=== PATIENT | female | born 1995 | race Caucasian/White ===

== ENCOUNTER 2023-05-01 21:24 | Emergency (ER) | payer BC, SELFPAY ==
[2023-05-01 21:26] VITALS: BP 109/65; PULSE 85; RESP 16; TEMP 36.6; O2SAT 100
--- NOTE | 2023-05-01 21:33 | ECG_ITS ---
Measurements Intervals Victor Rate: 81 P: 43 ID: 131 QRS: 24 QRSD: 103 T: 33 QT: 379 QTc: 442 Interpretive Statements SINUS RHYTHM NONSPECIFIC T-WAVE ABNORMALITY- ANTEROLAT/INF LEADS BASELINE ARTIFACT- I, II, III, AVR, AVF BORDERLINE ECG NO PREVIOUS ECG AVAILABLE FOR COMPARISON Electronically Signed On 05-02-2023 6:57:39 CDT by Mahendra Burns D.O.
[2023-05-01 21:41] VITALS: PULSE 82; RESP 17
[2023-05-01 21:45] VITALS: PULSE 86; RESP 19
[2023-05-01 21:47] VITALS: BP 101/72; PULSE 90; RESP 15
[2023-05-01 21:49] VITALS: RESP 14
--- NOTE | 2023-05-01 21:49 | ED.GENADULT ---
HPI - General Adult General Chief complaint: Overdose Stated complaint: od Time Seen by Provider: 05/01/23 21:44 History of Present Illness HPI narrative: 27 year old femal history of depression presented with ingestion. Per patient, she has been having increased life stressors, been unable to find an outpatient psychiatrist. Today reports not wanting to wake up so took a handful of clonopin, xanax, and two pills of vicodin. Immediately regretted it, and texted her father. This occured 40 min prior to presentation. She denied medical complaints prior to this incident. Denied HI/AH/VH. Past Medical History: depression Past Surgical History: neck decompression, trach Medications: klonopin, xanax Allergies: latex, polymixin Related Data Home Medications Medication Instructions Recorded Confirmed buspirone 30 mg tablet mg 05/02/23 clomipramine 75 mg capsule mg 05/02/23 05/02/23 gabapentin 100 mg capsule mg 05/02/23 gabapentin 300 mg capsule mg 05/02/23 levomefolate calcium 15 mg tablet mg PO 05/02/23 midodrine 5 mg tablet mg 05/02/23 zonisamide 100 mg capsule mg PO 05/02/23 Allergies Allergy/AdvReac Type Severity Reaction Status Date / Time bacitracin Allergy Unknown Unknown Verified 05/02/23 06:05 latex Allergy Unknown RASH Verified 05/02/23 06:05 tree nut Allergy Unknown Unknown Verified 05/02/23 06:05 POLYMYXIN B SULFATE Allergy Unknown Unknown Uncoded 05/02/23 06:05 Review of Systems Review of Systems: See HPI [facility] Social History Social History Substance use type: marijuana Exam Narrative: General: Alert, mildly somnolent, calm and cooperative, no acute distress, phonating, sitting comfortably during visit HEENT: Pupils equal round and reactive to light, extra ocular movements intact, no conjunctival injection, head atraumatic, neck supple without meningismus Cardiovascular: Regular rate and rhythm, no visible jugular venous distension Respiratory: Lungs clear to auscultation bilaterally, no wheezing/rales/rhonchi Abdominal: soft, non-tender, non-distended, no guarding, no rebound/peritoneal signs, no costovertebral tenderness to palpation Back: no midline tenderness to palpation, no step offs Extremities: No edema, palpable peripheral pulses, warm, well perfused, no tenderness to bilateral calves Neurological: Alert, mildly somnolent, moving all extremities symmetrically, ambulating without deficit Course Reevaluation(s) Reevaluation #1: Patient reassessed, no longer somnolent. Physical exam benign, sitting in bed comfortably, vitals within normal limits. Patient is medically cleared for psychiatric evaluation and disposition. Date: 05/02/23 Time: 02:00 Consultations Consultation #1: Poison control contacted; recommended 4 hour tylenol level (1am), treat with NAC if tyelenol level >150 or if transaminitis. Date: 05/01/23 Time: 22:25 Vital Signs Vital signs: Vital Signs Temperature 97.8 F 05/01/23 21:26 Pulse Rate 85 05/01/23 21:26 Respiratory Rate 16 05/01/23 21:26 Blood Pressure 109/65 05/01/23 21:26 Pulse Oximetry 100 05/01/23 21:26 Oxygen Delivery Room Air 05/01/23 21:26 Temperature 97.8 F 05/01/23 21:26 Pulse Rate 65 05/02/23 04:30 Respiratory Rate 14 05/02/23 04:30 Blood Pressure 123/75 05/02/23 04:30 Pulse Oximetry 100 05/02/23 04:30 Oxygen Delivery Room Air 05/01/23 21:26 Medical Decision Making MDM Narrative Medical decision making narrative: 27 year old female history of depression presented with ingestion in the setting of suicidal intention. Physical exam benign, mildly somnolent, neuro exam non focal, sitting in bed comfortably, vitals stable. Poison control contacted. Bloodwork reviewed, unremarkable. Patient is medically cleared for transportation and psychiatric admission. Vital Signs Vital Signs: Vital Signs Temperature 97.8 F 05/01/23 21:26 Pulse Rate 85 05/01/23 21:26 Respiratory Rate 16
--- NOTE | 2023-05-01 22:06 | PC.NURSE ---
spoke with Deep at Poison Control. case # [id number]. provider aware of recommendations
[2023-05-01 22:12] LABS: Basophils Absolute Auto 0.1 K/mm3 (0.0-0.1); Basophils Percent Auto 0.6 % (0.2-1.2); Eosinophils Absolute Auto 0.2 K/mm3 (0-0.3); Eosinophils Percent Auto 2.9 % (0-4.4); Hematocrit 36.1 % (37.0-47.0); Hemoglobin 11.9 g/dL (12.0-15.0); Immature Granulocyte Absolute 0.02 K/mm3 (0.00-0.031); Immature Granulocyte Percent A 0.3 % (0-0.5); Lymphocytes Absolute Auto 3.05 K/mm3 (0.9-3.2); Lymphocytes Percent Auto 38.4 % (18.3-44.2); Mean Corpuscular Hemoglobin 30.8 pg (26-34); Mean Corpuscular Volume 93.5 fl (80-100); Mean Platelet Volume 10.8 fl (7.4-10.4); Monocytes Absolute Auto 0.5 K/mm3 (0.1-0.6); Monocytes Percent Auto 6.7 % (2.6-8.5); Neutrophils Absolute Auto 4.1 K/mm3 (1.3-6.7); Neutrophils Percent Auto 51.1 % (45.5-73.1); Platelet Count Result 284 k/mm3 (150-375); Red Blood Count 3.86 M/mm3 (4.2-5.4); Red Cell Distribution Width 12.7 % (11.5-14.5); White Blood Count 7.9 K/mm3 (4.5-10.0)
[2023-05-01 22:25] LABS: SARS-CoV-2 RNA PCR Negative (Negative)
[2023-05-01 23:11] LABS: Acetaminophen < 10 ug/mL (10-30); Salicylate < 1.0 mg/dL (2-20)
[2023-05-01 23:45] LABS: Ethanol < 10 mg/dL (<10)
[2023-05-02 00:46] LABS: Appearance Urine Clear (Clear); Bilirubin Urine Negative (Negative); Blood Urine Negative (Negative); Color Urine Yellow (Yellow); Glucose Urine UA Negative (Negative); Ketones Urine Negative (Negative); Leukocyte Esterase Ur Negative LEU/UL (Negative); Nitrate Urine Negative (Negative); Protein Urine Negative (Negative); Specific Grav Ur 1.009 (1.001-1.035); Urobilinogen Urine 0.2 mg/dL (<2.0); pH Urine 6.5 (5.0-9.0)
[2023-05-02 01:05] LABS: Amphetamine Screen Urine Negative (Negative); Barbiturate Screen Urine Positive (Negative); Benzodiazepines Screen Urine Positive (Negative); Cannabinoid Screen Urine Negative (Negative); Cocaine Screen Urine Negative (Negative); Methadone Screen Urine Negative (Negative); Opiate Screen Urine Positive (Negative); Phencyclidine Screen Urine Negative (Negative)
[2023-05-02 01:10] LABS: Add Urine Microscopic? NO
[2023-05-02 01:33] LABS: Acetaminophen < 10 ug/mL (10-30)
[2023-05-02 01:36] LABS: Alanine Aminotransferase 31 U/L (6-35); Albumin Level 3.9 g/dL (3.5-5.1); Alkaline Phosphatase 72 U/L (38-126); Anion Gap 8 mmol/L (8-16); Aspartate Amino Transferase 32 U/L (14-36); Bilirubin,Total 0.3 mg/dL (0.2-1.3); Blood Urea Nitrogen 7 mg/dL (7-17); Calcium 8.2 mg/dL (8.4-10.2); Carbon Dioxide 27 mmol/L (22-30); Chloride 104 mmol/L (98-107); Estimated CRCL calculation 139 ml/min; Estimated Glomerular Filt Rate > 60; Glucose 88 mg/dL (65-110); Potassium 3.7 mmol/L (3.4-5.0); Sodium 139 mmol/L (137-145)
--- NOTE | 2023-05-02 02:50 | PC.NURSE ---
Case number for poison control [id number]
[2023-05-02 02:54] VITALS: BP 109/65; PULSE 73; RESP 18; O2SAT 100
[2023-05-02 04:30] VITALS: BP 123/75; PULSE 65; RESP 14; O2SAT 100
--- NOTE | 2023-05-02 04:30 | PC.NURSE ---
Assumed care of pt. at this time. Report from WILMA Bales
--- NOTE | 2023-05-02 07:23 | PC.NURSE ---
Patient report received from WILMA Guerra. All questions answered and care of patient assumed.
--- NOTE | 2023-05-02 07:45 | PC.NURSE ---
Spoke with Consuelo from [facility]. Information provided as requested. Speaking with patient and father to discuss transfer and admission.
--- NOTE | 2023-05-02 08:18 | PC.NURSE ---
Received a call from the [place] who states that because the patient was on her father's insurance and her birthday is today and she will no longer be covered under his insurance and thus it will be self-pay. Communicated to patient and father.
[2023-05-02 09:00] VITALS: BP 94/59; PULSE 102; RESP 14; TEMP 36.7; O2SAT 100
[2023-05-02 12:28] VITALS: BP 92/60; PULSE 108; RESP 16; TEMP 36.7; O2SAT 96
--- NOTE | 2023-05-02 12:29 | PC.NURSE ---
Patient report provided to paramedics at time of transfer. All questions answered. Patient transferred with all secured belongings. VSS at time of transport.
== END 2023-05-02 12:29 ==
PROVIDERS: Emergency Provider Emergency Medicine
DX: T50.902A Poisoning by unspecified drugs, medicaments and biological substances, intentional self-harm, initial encounter (principal); F32.A Depression, unspecified
CPT/HCPCS: 36415; 80053; 80307; 81003; 81025; 84443; 85025; 87635; 93005; 99285

== ENCOUNTER 2025-02-10 15:34 | Emergency (ER) | payer MEDICARE, MEDICAID, SELFPAY ==
--- OUTSIDE RECORDS SUMMARY | 2025-02-10 15:37 | XMS_ITS | Patient Health Record ---
Author Organization [employer] [place] ([address]) Address [address] [place] [address] Care Team Providers Care Trade Recruiter Name Role Phone Dr. Kareem Lowery Unavailable [phone] [facility], Provider Unavailable Unavailab le Allergies No Known Allergies Reason For Referral No Information Medications Medication SIG (Take, Route, Frequency, Duration) Notes Start Date End Date Status CLARITIN 10 mg 1 tab(s) orally once a day Active Midodrine HCl 10 MG 1 tab(s) orally 3 times a day for 30 day(s) Active clomiPRAMINE HCl 50 MG 1 cap(s) orally 3 times a day for 30 day(s) Active Claritin 10 MG 1 tab(s) orally once a day Active Flonase Allergy Relief *Please review and pick correct strength-formulati on from [employer] options. If intended option is not shown, discontinue and re-order from Quick Search* Active Gabapentin 100 MG 1 cap(s) orally 3 times a day for 30 day(s) Active FLUoxetine HCl 60 MG 1 TAB(S) ORALLY ONCE A DAY (IN THE MORNING) for 30 DAY(S) *Please review and pick correct strength-formulati on from [employer] options. If intended option is not shown, discontinue and re-order from Quick Search* Active CLOMIPRAMINE 50 mg 1 cap(s) orally 3 times a day for 30 day(s) Active NORDITROPIN FLEXPRO PEN 15 MG/1.5 ML DIRECTED SUBCUTANEOUSLY 6 TIMES A WEEK *Please review for potential replacement for e-prescription and drug interaction check* Active DULoxetine HCl 20 MG 1 cap(s) orally 2 times a day for 30 day(s) Active MIDODRINE 10 mg 1 tab(s) orally 3 times a day for 30 day(s) Active GABAPENTIN 100 mg 1 cap(s) orally 3 times a day for 30 day(s) Active FLONASE Active FLUOXETINE 60 mg 1 tab(s) orally once a day (in the morning) for 30 day(s) Active DULOXETINE 20 mg 1 cap(s) orally 2 times a day for 30 day(s) Active Social History Tobacco Use: Social History Observation Description Date Details (start date - stop date) Never Smoker NA - NA Smoking Smart Form: Question Answer Notes Are you a: never smoker Encounters Encounter Location Date Provider Diagnosis [address] [place] [address] 03/22/2024 Provider [facility] Plan Of Treatment No Information Insurance Providers Payer Name Payer Address Payer Phone Subscriber Number Group Number Insured Name Patient Relationship to Insured Coverage Start Date Coverage End Date [facility] [address] [place] [address] [id number] [employer] Child - Insured has Financial Responsibility Medical (General) History Medical History History ICD Code H/o TBI as above Depression Hypotension Allergies Surgical History Surgery Date(Month/Year) Previous cranial burrhole surgery as abo ve
--- OUTSIDE RECORDS SUMMARY | 2025-02-10 15:37 | XMS_ITS ---
Author Organization [employer] [place] ([address]) Address [address] [place] [address] Care Team Providers Care Customer Support Representative Name Role Phone Dr. Kareem Lowery Unavailable [phone] [facility], Provider Unavailable Unavailab le [facility]ASON FOR VISIT [facility] Encounter Medications Medication SIG (Take, Route, Frequency, Duration) Notes Start Date End Date Status clomiPRAMINE HCl 50 MG 1 cap(s) orally 3 times a day for 30 day(s) Active Flonase Allergy Relief *Please review and pick correct strength-formulati on from [employer] options. If intended option is not shown, discontinue and re-order from Quick Search* Active Gabapentin 100 MG 1 cap(s) orally 3 times a day for 30 day(s) Active FLUoxetine HCl 60 MG 1 TAB(S) ORALLY ONCE A DAY (IN THE MORNING) for 30 DAY(S) *Please review and pick correct strength-formulati on from [employer] options. If intended option is not shown, discontinue and re-order from Quick Search* Active Midodrine HCl 10 MG 1 tab(s) orally 3 times a day for 30 day(s) Active Claritin 10 MG 1 tab(s) orally once a day Active NORDITROPIN FLEXPRO PEN 15 MG/1.5 ML DIRECTED SUBCUTANEOUSLY 6 TIMES A WEEK *Please review for potential replacement for e-prescription and drug interaction check* Active DULoxetine HCl 20 MG 1 cap(s) orally 2 times a day for 30 day(s) Active Encounters Encounter Location Date Provider Diagnosis RINKU Rojas [facility] [place] [address] 03/22/2024 Provider [facility] Plan Of Treatment No Information Progress Notes * Hermila CHARLES:1995 (29 yo F)Acc No.[id number]:03/22/2024 Patient: Ying LINDSAY Provider: Willy Burnett :1995 A ge:28 Y S ex:Female Date:03/22/2024 Address:[address] [place], [place] [id number] Subjective: * Chief Complaints: * 1 . [facility] Con[facility] Encounter. * Medical History: * Medications: T aking Midodrine HCl 10 MG Tablet 1 tab(s) orally 3 times a day , Taking Flonase Allergy Relief , Notes to Pharmacist: *Please review and pick correct strength-formulation from [facility] options. If intended option is not shown, discontinue and re-order from Quick Search*, Taking Gabapentin 100 MG Capsule 1 cap(s) orally 3 times a day , Taking clomiPRAMINE HCl 50 MG Capsule 1 cap(s) orally 3 times a day , Taking Claritin 10 MG Tablet 1 tab(s) orally once a day , Taking NORDITROPIN FLEXPRO PEN 15 MG/1.5 ML SOLUTION DIRECTED SUBCUTANEOUSLY 6 TIMES A WEEK , Notes to Pharmacist: *Please review for potential replacement for e-prescription and drug interaction check*, Taking DULoxetine HCl 20 MG Capsule Delayed Release Particles 1 cap(s) orally 2 times a day , Taking FLUoxetine HCl 60 MG TABLET 1 TAB(S) ORALLY ONCE A DAY (IN THE MORNING) , Notes to Pharmacist: *Please review and pick correct strength-formulation from [facility] options. If intended option is not shown, discontinue and re-order from Quick Search* Objective: * Vitals: Assessment: Plan: * Treatment: * Billing Information: * Visit Code: * Procedure Codes: * Electronic signature of Jimi BradyZ-Migration on 02/10/2025 at 03:37 PM CDT Sign off status: Pending * Provider: Willy Burnett Date: 03/22/2024 Generated for Luann marino/Seth/Irina on: 02/10/2025 03:37 PM CDT
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
--- OUTSIDE RECORDS SUMMARY | 2025-02-10 15:38 | XMS_ITS | Clinical Summary ---
Author Organization [facility] Address [address] [place] [address] Care Team Providers Care Chainstitch Felled Seam Operator Name Role Phone None, Physician Primary Care Provider Unavailabl e Source Comments [facility],non-owned Affiliates and Associated Physician Practices is amultiple site organization consisting of ambulatory clinics and hospital sitesin [place], [place], [place] and [place]. This disclosure is being madepursuant to the Care Everywhere program and may not contain all information available regarding this patient. Last updated 18.[facility] Allergies Active Allergy Reactions Criticality Noted Date Comments Latex Skin Reactions Medium 03/22/2017 Neomycin Itching Low 03/22/2017 Medications * Be aware that medications may not be up to date on this document. Alwaysverify current medications with the patient. vilazodone (VIIBRYD) 10 MG tablet Take by mouth. 7 Active ALPRAZolam (XANAX) 1 MG tablet 0 7 Active buPROPion XL 24hr (WELLBUTRIN-XL) 300 MG tablet 2 7 Active Probiotic Product (ACIDOPHILUS/GOA T MILK) CAPS Take by mouth. 7 Active nystatin (MYCOSTATIN) 420987 UNIT/GM ointment Use externally vaginal area for red/ itching skin. 30 g 8 Active Additional Information Patient not taking.Reported on 04/21/2020 boric acid 600 mg capsuleIndicatio ns:History of candidiasis Use to vagina twice weekly to control symptoms 30 capsule 3 0 Active albuterol HFA (Proventil; Ventolin; Proair) 108 (90 Base) MCG/ACT inhaler Inhale 2 (two) puffs by mouth every 6 hours as needed 2 Active ALPRAZolam (Xanax) 0.5 MG tablet 3 Active ALPRAZolam (Xanax) 0.5 MG tablet Take 1 (one) tablet to 2 (two) tablets by mouth once daily as needed 3 Active amantadine (Symmetrel) 100 MG capsule 3 Active amantadine (Symmetrel) 100 MG capsule Take 1 (one) capsule by mouth 2 times daily 3 Active ARIPiprazole (Abilify) 2 MG tablet Take 1 (one) tablet by mouth at bedtime 3 Active ARIPiprazole (Abilify) 2 MG tablet Take 1 (one) tablet by mouth at bedtime 30 tablet 5 3 Active busPIRone (Buspar) 7.5 MG tablet Take 1 (one) tablet by mouth once daily as needed 3 Active busPIRone (Buspar) 7.5 MG tablet Take 2 (two) tablets by mouth 2 times daily 3 Active busPIRone (Buspar) 15 MG tablet Take 1 (one) tablet by mouth 2 times daily 3 Active busPIRone (Buspar) 30 MG tablet Take 1 (one) tablet by mouth 2 times daily 3 Active ondansetron (Zofran) 4 MG tablet TAKE 1 OR 2 TABLETS BY MOUTH EVERY 4 TO 6 HOURS NEEDED FOR NAUSEA 3 Active Norditropin FlexPro 10 MG/1.5ML injection 3 Active Active Problems Problem Noted Date Diagnosed Date History of carotid artery dissection 01/02/2020 Vocal fold paresis, 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 Overview (04/21/2020): Added automatically from request for surgery [id number] History of candidiasis 06/17/2018 Impaired mobility and ADLs 06/02/2018 Traumatic brain injury 04/29/2018 Loss of teeth due to an accident, class II edent ulism 04/28/2018 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 Overview (04/21/2020): Added automatically from request for surgery [id number] Personal history of other infectious and parasit ic diseases 03/22/2017 Subacute on chronic vulvitis 03/22/2017 Immunizations Immunization Administration Dates Next Due TDAP (7yrs+) 10/16/2023 Family History Medical History Relation Name Comments Depression Father Parkinson's Disease Maternal Grandfather None Known Maternal Grandmother None Known Mother None Known Paternal Grandfather Depression Paternal Grandmother Depression Sister Relation Name Status Comments Father Maternal Grandfather Maternal Grandmother Alive Mother Paternal Grandfather Alive Paternal Grandmother Alive Sister Social History Tobacco Use Types Packs/Day Years Used Date Smoking Tobacco: Passive Smo ke Exposure - Never Smoker Smokeless Tobacco: Never Alcohol Use Standard Drinks/Week Comments No 0 (1 standard drink = 0.6 oz pur e alcohol) Comments Unknown Sex and Gender Information Value Date Recorded Sex Assigned at Female 06/26/2021 6:54 PM CDT Legal Sex Female 5:18 PM [employer] Gender Identity Female 06/26/2021 6:54 PM CDT Sexual Orientation Not on file Last Filed Vital Signs Vital Sign Reading Time Taken Comments Blood Pressure 101/69 10/16/2023 12:00 AM AUTO MECH[employer]IC Pulse 87 10/16/2023 12:00 AM AUTO MECH[employer]IC Temperature 36.1 C (97 F) 10/15/2023 7:48 PM [employer]O MECH[employer]IC Respiratory Rate 18 10/15/2023 7:48 PM AUTO MECHANIC Oxygen Saturation 99% 10/16/2023 12:00 AM AUTO MECHANIC Inhaled Oxygen Concentration - - Weight 101.2 kg (223 lb) 10/15/2023 7:48 PM AUTO MECHANIC Height 167.6 cm (5' 6 ) 04/21/2020 1:13 PM CDT Body Mass Index 35.99 04/21/2020 1:13 PM CDT Plan of Treatment Health Maintenance Due Date Last Done Comments PAP SMEAR 1997 HIV SCREENING 2012 HEPATITIS C SCREENING 04/28/2015 HEPATITIS B VACCINE (1 of 3 - 19+ 3-dose series) 2016 COVID-19 VACCINE ( season) 2024 07/27/2023, 08/25/2022, 08/20/2021, Additional history exists DEPRESSION SCREENING 10/08/2024 INFLUENZA VACCINE (Season Ended) 2025 07/27/2023, 08/25/2022, 08/20/2021, Additional history exists DTAP/TDAP/TD VACCINES (2 - Td or Tdap) 10/16/2033 10/16/2023 ZOSTER VACCINE (1 of 2) 2047 HIB VACCINE Aged Out No longer eligi ble based on patient's age to complete this topic HPV VACCINE Aged Out No longer eligi ble based on patient's age to complete this topic MENINGOCOCCAL (Group B) VACCINE SHARED DECISION-MAKING Aged Out No longer eligible based on patient's age to complete this topic MENINGOCOCCAL GROUPS A/C/Y/W VACCINE Aged Out No longer eligible based on patient's age to complete this topic PNEUMOCOCCAL VACCINE Aged Out No long er eligible based on patient's age to complete this topic Insurance Care Teams Chainstitch Felled Seam Operator Relationship Specialty Start Date End Date None, Physician [address] [place] [address] PCP - General 10/14/23
--- OUTSIDE RECORDS SUMMARY | 2025-02-10 15:38 | XMS_ITS | Clinical Summary ---
Author Organization [facility] Address [address] [place] [address] Phone Care Team Providers Care Tobacco Packing Machine Operator Name Role Phone Unavailable Primary Care Provider Unavailabl e Allergies No known active allergies Medications albuterol 90 mcg/Actuation HFA inhaler Take 2 Puffs by inhalation every 4 hours as needed for Shortness of Breath. Active norethindrone-e .estradiol-iron (MINASTRIN 24 FE) 1 mg-20 mcg(24) /75 mg (4) Tablet, Chewable Take by mouth. Activ e beclomethasone (QVAR) 40 mcg/actuation Aerosol Take 1 Puff by inhalation 1 time daily as needed. Active Family History Medical History Relation Name Comments Bipolar Disorder Sister Relation Name Status Comments Sister Social History Tobacco Use Types Packs/Day Years Used Date Smoking Tobacco: Never Alcohol Use Standard Drinks/Week Comments No 0 (1 standard drink = 0.6 oz pur e alcohol) Comments Unknown Sex and Gender Information Value Date Recorded Sex Assigned at Not on file Legal Sex Female 3:40 PM CDT Gender Identity Not on file Sexual Orientation Not on file Occupation Industry Job Start Date Job End Date Not on file Not on file Not on file Not on file Last Filed Vital Signs Vital Sign Reading Time Taken Comments Blood Pressure 124/85 06/20/2014 3:59 PM CDT Pulse - - Temperature 37.1 C (98.8 F) 06/20/2014 3:59 PM CDT Respiratory Rate 16 06/20/2014 6:00 PM CDT Oxygen Saturation 99% 06/20/2014 6:00 PM CDT Inhaled Oxygen Concentration - - Weight 62.6 kg (138 lb 0.1 oz) 06/20/2014 3:59 P M CDT Height - - Body Mass Index - - Plan of Treatment Health Maintenance Due Date Last Done Comments DTAP/TDAP/TD VACCINES (1 - Tdap) 2016 HEPATITIS B VACCINES (1 of 3 - 19+ 3-dose series) 2016 CERVICAL CANCER SCREENING 2018 HPV/Cotest (21-29) 2018 PAP SMEAR 2018 INFLUENZA VACCINE (#1) 2024 HPV VACCINES Aged Out No longer eligi ble based on patient's age to complete this topic Insurance [facility] Address: [facility] [id number] [place] [address] [place] [id number]
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
--- OUTSIDE RECORDS SUMMARY | 2025-02-10 15:38 | XMS_ITS | Patient Health Record ---
Author Organization [facility] Address [address] [place] [address] Care Team Providers Care Buckle Frame Shaper Name Role Phone Fuentes Edmondson Primary Care Provider Unavailabl e Senait, Samiada Unavailable [phone] Allergies Allergen (clinical drug ingredient) Drug/Non Drug Allergy documented on EMR Reaction Allergy Type Onset Date Status Latex Latex (uncoded) rash, sensitivity Allergy Active nickel Yashira (uncoded) rash Allergy Act brenda Tree nuts (uncoded) anaphylaxis Allergy Active neomycin Neomycin Sulfate rash Drug Allergy Active Reason For Referral No Information Medications Medication SIG (Take, Route, Frequency, Duration) Notes Start Date End Date Status Xanax 0.5 MG 1 tablet Orally PRN Active Ergocalciferol 46466 UNIT 1 capsule Oral ly Once a week Active ZyrTEC Allergy 10 MG 1 tablet Orally QD Active Wellbutrin SR 150 MG 2 tablets Orally Q AM Active traZODone HCl 50 MG 1 tablet Orally Q PM Active Gabapentin 300 MG 1 capsule Orally Q PM Active Zofran 4 MG 1 tablet Orally PRN Active Meclizine HCl 25 MG (no dose given) Oral ly PRN Active Viibryd 10 MG 3 tablets (30mg) wit h food Orally Q AM Active Aspir-81 81 MG 1 tablet Orally QD Active Nuedexta 20-10 MG 1 capsule Orally Q PM Not-Taking Tylenol 325 MG (no dose given) Oral ly PRN Active Albuterol PRN Active Norditropin FlexPro 10 MG/1.5ML 0.4 MG Sub Q QD for 25 days Active NovoTwist 32G X 5 MM as directed Sub Q Q D for 25 days 01/16/2019 Active Problems Problem Type SNOMED Code ICD Code Onset Dates Problem Status W/U Status Risk Notes Problem 49178681 Dehydration (E86.0) Active confirmed Problem [id number] Traumatic brain injury, with loss of consciousness of 30 minutes or less, initial encounter (S06.9X1A) Active confirmed Plan Of Treatment Pending Test Test Name Order Date CBC, No Diff/ Platelets 12/09/2018 Estradiol, LCMS, Endo Sci 12/09/2018 Vitamin B12 12/09/2018 T4 Free 12/09/2018 T3 total 12/09/2018 Cortisol (Random) 12/09/2018 TSH 12/09/2018 Vitamin D, 25-Hydroxy 12/09/2018 Lipid Panel 12/09/2018 Comp. 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
--- NOTE | 2025-02-10 15:39 | ED_ITS ---
HPI - Skin/Abscess/Foreign Bdy General Chief complaint: Skin/Abscess/Foreign Body Stated complaint: Rt hand infection Source: patient, RN notes reviewed and old records reviewed Mode of arrival: ambulatory Limitations: no limitations History of Present Illness HPI narrative: 29-year-[facility], abrasions to the dorsal right wrist. States that she fell scraping him on Sunday. Has been applying bacitracin. Area is clean and dry. Patient is concern for infection. Related Data Home Medications ?Medication ?Instructions ?Recorded ?Confirmed ?Last Taken ?Type buspirone 30 mg tablet mg 05/02/23 Unknown History clomipramine 75 mg capsule mg 05/02/23 05/02/23 Unknown History gabapentin 100 mg capsule mg 05/02/23 Unknown History gabapentin 300 mg capsule mg 05/02/23 Unknown History levomefolate calcium 15 mg tablet mg PO 05/02/23 Unknown History midodrine 5 mg tablet mg 05/02/23 Unknown History zonisamide 100 mg capsule mg PO 05/02/23 Unknown History aripiprazole 10 mg tablet mg 02/10/25 Unknown History duloxetine 20 mg capsule,delayed mg PO 02/10/25 Unknown History release modafinil 200 mg tablet mg 02/10/25 Unknown History Allergies Allergy/AdvReac Type Severity Reaction Status Date / Time latex Allergy Mild Rash Verified 02/10/25 15:40 neomycin Allergy Mild Rash Verified 02/10/25 15:56 tree nut Allergy Unknown Unknown Verified 02/10/25 15:40 Review of Systems Review of Systems: All systems reviewed & are unremarkable except as noted in HPI and below Constitutional: Constitutional: Reports no additional constitutional complaints ENT: Reports system reviewed and no additional complaints, except as documented Cardiovascular: Cardiovascular: Reports no additional cardiovascular complaints, Denies chest pain and Denies dyspnea Respiratory: Respiratory: Reports no additional respiratory complaints, Denies chest congestion, Denies cough and Denies dyspnea Musculoskeletal: Musculoskeletal: Reports no additional musculoskeletal complaints Integumentary/Breasts: Skin/Breast: Reports as per [facility] Social History Social History Substance use type: marijuana Comments At the time of my signature, I reviewed and agree with the nursing past medical, surgical, social, and family history. There is no relevant family history pertinent to the patient complaint. Exam Const: General: cooperative, healthy appearing, comfortable, no acute distress, well developed, alert and well nourished Nutritional Appearance: well nourished Orientation/consciousness: patient oriented x3 Limitations: no limitations HENMT: Head: normal to inspection Eyes: General: appearance normal, both eyes and all related structures Alignment and Position: alignment normal Neck: Neck: normal visual inspection, full ROM, no lymphadenopathy and no meningeal signs Chest: Chest palpation & inspection: normal inspection of the chest Resp: Effort & Inspection: normal respiratory effort and able to speak in complete sentences Cardio: Rate: regular rate Skin: General skin exam: normal color and no rashes or lesions noted Other: Three 1 cm circular abrasions dorsal right wrist. Area is clean and dry. Neuro: General: patient oriented x3, gait normal, moves all extremities and no meningeal signs Cognition (Neuro): normal cognition Speech: normal speech Gait exam (Neuro): Normal gait present Extrem: General: normal to inspection, full ROM, capillary refill normal and normal gait Psych: Appearance: grossly normal and well kempt Mental Status: mental status grossly normal Speech and movement: Normal speech and movement present and Clear speech present Affect: normal affect Attitude: cooperative Course Course Level of Care: Express Care Visit Vital Signs Vital signs: Vital Signs Temperature 97.8 F 02/10/25 15:47 Pulse Rate 102 H 02/10/25 15:47 Respiratory Rate 18 02/10/25 15:47 Blood Pressure 147/99 H 02/10/25 15:47 Pulse Oximetry 99 02/10/25 15:47 Oxygen Delivery Room Air 02/10/25 15:47 Temperature 97.8 F 02/10/25 15:47 Pulse Rate 102 H 02/10/25 15:47 Respiratory Rate 18 02/10/25 15:47 Blood Pressure 147/99 H 02/10/25 15:47 Pulse Oximetry 99 02/10/25 15:47 Oxygen Delivery Room Air 02/10/25 15:47 Reviewed MDM - Skin/Abscess/Foreign Bdy MDM Narrative Medical decision making narrative: Patient sitting in exam room. Patient is nontoxic, vitals stable. Patient with complex medical history. Will cover with antibiotics, discussed not really needing them continue the [id number] products and keeping it clean and dry. Patient appropriate for outpatient treatment and follow-up Discharge instructions reviewed with patient, as well as provided in writing per nursing staff. The instructions also include specific and strict return/GO TO THE ER as well as f/u information. All questions have been answered, and the patient deny any further questions with discharge and discharge plan. Some parts of this dictation were generated by voice recognition software and m ay contain typographical and/or grammatical inaccuracies. Differential Diagnosis Differential diagnosis: Likely abscess of skin or subcutaneous tissue, urticaria, cellulitis, impetigo and contact dermatitis Critical Care Time Critical Care Time Critical Care Time: No Discharge Plan Discharge Clinical Impression: Abrasion of right wrist, initial encounter Patient Disposition: Home Condition: Stable Instructions: Antibiotic Form, Abrasion (ED) Additional Instructions: Wash twice daily with warm soapy water, pat dry and apply bacitracin. Follow-up with primary care provider New or worsening symptoms go directly to the emergency room Patient Language: Vietnamese Prescriptions: New cephalexin 500 mg capsule 500 mg PO Q8H 7 Days Qty: 21 0RF No Action modafinil 200 mg tablet aripiprazole 10 mg tablet duloxetine 20 mg capsule,delayed release(DR/EC) PO clomipramine 75 mg capsule midodrine 5 mg tablet zonisamide 100 mg capsule PO buspirone 30 mg tablet gabapentin 300 mg capsule gabapentin 100 mg capsule levomefolate calcium 15 mg tablet PO Follow-up/Referrals: UNKNOWN,DOCTOR [Non-Staff] - Time of Disposition: 15:55
--- OUTSIDE RECORDS SUMMARY | 2025-02-10 15:45 | XMS_ITS | Clinical Summary ---
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 injury with loss of consciousness, sequela BMI 35.0-35.9,adult DEXAMETHASONE Routine 11/26/2024 9:27 AM FISHING LINE WINDING MACHINE OPERATOR Traumatic brain injury with loss of consciousness, sequela BMI 35.0-35.9,adult INSULIN-LIKE GROWTH FACTOR Routine 11/24/2024 12:48 PM FISHING LINE WINDING MACHINE OPERATOR GROWTH HORMONE Routine 11/24/2024 12:48 PM FISHING LINE WINDING MACHINE OPERATOR CORTISOL Routine 11/24/2024 12:48 PM FISHING LINE WINDING MACHINE OPERATOR 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, sequela ACTH Routine 11/24/2024 12:48 PM FISHING LINE WINDING MACHINE OPERATOR 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, sequela T3, FREE Routine 11/24/2024 12:48 PM FISHING LINE WINDING MACHINE OPERATOR Growth hormone deficiency T4, FREE Routine 11/24/2024 12:48 PM FISHING LINE WINDING MACHINE OPERATOR Growth hormone deficiency TSH Routine 11/24/2024 12:48 PM FISHING LINE WINDING MACHINE OPERATOR Growth hormone deficiency LIPID PANEL Routine 11/24/2024 12:48 PM FISHING LINE WINDING MACHINE OPERATOR Prediabetes HEMOGLOBIN A1C Routine 11/24/2024 12:48 PM FISHING LINE WINDING MACHINE OPERATOR Prediabetes PAP WITH REFLEX TO HIGH RISK HPV Routine 08/15/2022 11:14 AM FISHING LINE WINDING MACHINE OPERATOR Well woman exam with routine gynecological exam Special screening examination for human papillomavirus (HPV) Screening for malignant neoplasm of the cervix from Last 3 Months or Most Recently Relevant to Health Maintenance Results * Cortisol Free urine 24 hour (12/19/2024 2:43 PM CDT) Volume, 24 hr, ur 1,400 mL [facility], Cortisol, free, ur 21.5 4.0 - 50.0 mcg/24 h [facility], Comment: This test was developed and its analytical performance characteristics have been determined by [facility]. It has not been cleared or approved by the FDA. This assay has been validated pursuant to the CLIA regulations and is used for clinical purposes. Creatinine, ur 1.35 0.50 - 2.15 g/24 h [facility], Urine 12/19/2024 2:43 PM CDT 12/19/2024 2:44 PM CDT Narrative [facility] - 12/24/2024 10:12 PM CDT COLLECTION KIT GIVEN TO PATIENT. PATIENT ADVISED TO RETURN. URINE VOLUME: 1400/24 us Tina Sterling MD LAB URINE ORDERABLES Final Resul t [facility], [address] [place] [address] * Cortisol, saliva (12/09/2024 3:23 PM FISHING LINE WINDING MACHINE OPERATOR) Cortisol, saliva <0.03 mcg/dL [facility], Comment: 8-10 AM: 0.04-0.56 mcg/dL noon-2 PM: < OR = 0.21 mcg/dL 4-6 PM: < OR = 0.15 mcg/dL 10 PM-1 AM: < OR = 0.09 mcg/dL This test was developed and its analytical performance characteristics have been determined by [facility]. It has not been cleared or approved by FDA. This assay has been validated pursuant to the CLIA regulations and is used for clinical purposes. 12/09/2024 3:23 PM FISHING LINE WINDING MACHINE OPERATOR 12/10/2024 5:15 AM FISHING LINE WINDING MACHINE OPERATOR Narrative [facility] - 12/16/2024 2:08 AM CDT URINE VOLUME: 900/24 Tina Sterling MD LAB BODY FLUIDS AND STOOLS ORDER KENNY Final Result Performing Organization Address [facility] Co de Phone Number [facility], [address] [place] [address] * Cortisol Free urine 24 hour (12/09/2024 3:23 PM FISHING LINE WINDING MACHINE OPERATOR) Volume, 24 hr, ur 900 mL [facility], Cortisol, free, ur 13.8 4.0 - 50.0 mcg/24 h [facility], Comment: This test was developed and its analytical performance characteristics have been determined by [facility]. It has not been cleared or approved by FDA. This assay has been validated pursuant to the CLIA regulations and is used for clinical purposes. Creatinine, ur 1.28 0.50 - 2.15 g/24 h [facility], 12/09/2024 3:23 PM FISHING LINE WINDING MACHINE OPERATOR 12/10/2024 5:15 AM FISHING LINE WINDING MACHINE OPERATOR Narrative [facility] - 12/16/2024 2:08 AM CDT URINE VOLUME: 900/24 Tina Sterling MD LAB URINE ORDERABLES Final Resul t Performing Organization Address [facility] Co de Phone Number SERENITY [facility], [address] [place] [address] * Dexamethasone (11/26/2024 9:27 AM FISHING LINE WINDING MACHINE OPERATOR) DEXAMETHASONE 203 ng/dL [facility], Comment: Reference Ranges for Dexamethasone: Baseline: Less than 20 ng/dL 1 mg dexamethasone overnight: 180-550 ng/dL (8:00-10:00 AM) This test was developed and its analytical performance characteristics have been determined by [facility]. It has not been cleared or approved by FDA. This assay has been validated pursuant to the CLIA regulations and is used for clinical purposes. Blood 11/26/2024 9:27 AM FISHING LINE WINDING MACHINE OPERATOR 11/26/2024 9:28 AM FISHING LINE WINDING MACHINE OPERATOR Tina Sterling MD LAB BLOOD ORDERABLES Final Resul t Performing Organization Address [facility] de Phone Number [facility], [address] [place] [address] * (ABNORMAL) Cortisol (11/26/2024 9:27 AM FISHING LINE WINDING MACHINE OPERATOR) Cortisol 0.5(L) mcg/dL [facility] Comment: Reference Range: For 8 a.m.(7-9 a.m.) Specimen: 4.0-22.0 Reference Range: For 4 p.m.(3-5 p.m.) Specimen: 3.0-17.0 * Please interpret above results accordingly * Blood 11/26/2024 9:27 AM FISHING LINE WINDING MACHINE OPERATOR 11/26/2024 9:28 AM FISHING LINE WINDING MACHINE OPERATOR Result [facility] Tina Sterling MD LAB BLOOD ORDERABLES Final Resul t Performing Organization Address [facility] de Phone Number [facility] [address] [place] [address] * Insulin-like growth factor (IGF-1) (11/24/2024 12:48 PM FISHING LINE WINDING MACHINE OPERATOR) IGF 1, LC/MS 159 63 - 373 ng/mL [facility], Z SCORE (FEMALE) -0.1 -2.0 - 2.0 SD [facility], Comment: This test was developed and its analytical performance characteristics have been determined by [facility]. It has not been cleared or approved by FDA. This assay has been validated pursuant to the CLIA regulations and is used for clinical purposes. 11/24/2024 12:4 8 PM FISHING LINE WINDING MACHINE OPERATOR 11/24/2024 12:48 PM FISHING LINE WINDING MACHINE OPERATOR Narrative [facility] - 11/30/2024 5:25 PM FISHING LINE WINDING MACHINE OPERATOR FASTING:YES FASTING: YES Tina Sterling MD LAB BLOOD ORDERABLES Final Resul t [facility], [address] [place] [address] * Growth hormone (11/24/2024 12:48 PM FISHING LINE WINDING MACHINE OPERATOR) Pathologist [facility] Growth hormone 0.1 < OR = 7.1 ng/mL [facility] Comment: Because of a pulsatile secretion pattern, random (unstimulated) growth hormone (GH) levels are frequently undetectable in normal children and adults and are not reliable for diagnosing GH deficiency. Regarding suppression tests, failure to suppress GH is diagnostic of acromegaly. Typical GH response in healthy subjects: Using the glucose tolerance (GH suppression) test, acromegaly is ruled out if the patient's GH level is <1.0 ng/mL at any point in the timed sequence. [Carmine L, Tomas Gutiérrez ER, Ayan S, et al. Acromegaly: an Endocrine Society Clinical Practice Guideline. J Clin Endocrinol Metab 2014; 99: 3933- 3951]. Using GH stimulation testing, the following result at any point in the timed sequence makes GH deficiency unlikely: Adults (> or = 20 years): Insulin Hypoglycemia > or = 5.1 ng/mL Arginine/GHRH > or = 4.1 ng/mL Glucagon > or = 3.0 ng/mL Children (< 20 years): All Stimulation Tests > or = 10.0 ng/mL 11/24/2024 12:4 8 PM FISHING LINE WINDING MACHINE OPERATOR 11/24/2024 12:48 PM FISHING LINE WINDING MACHINE OPERATOR Narrative [facility] - 11/30/2024 5:25 PM FISHING LINE WINDING MACHINE OPERATOR FASTING:YES FASTING: YES us Tina Sterling MD LAB BLOOD ORDERABLES Final Resul t Performing Organization Address [facility] Co de Phone Number [facility] [address] [place] [address] * ACTH (11/24/2024 12:48 PM FISHING LINE WINDING MACHINE OPERATOR) ACTH, PLASMA 14 6 - 50 pg/mL [facility] Comment: Reference range applies only to specimens collected between 7am-10am. Blood 11/24/2024 12:4 8 PM FISHING LINE WINDING MACHINE OPERATOR 11/24/2024 12:48 PM FISHING LINE WINDING MACHINE OPERATOR Narrative [facility] - 11/30/2024 5:25 PM FISHING LINE WINDING MACHINE OPERATOR FASTING:YES FASTING: YES Tina Sterling MD LAB BLOOD ORDERABLES Final Resul t Performing Organization Address [facility] Co de Phone Number [facility] [address] [place] [address] * T3, free (11/24/2024 12:48 PM FISHING LINE WINDING MACHINE OPERATOR) Free T3 3.1 2.3 - 4.2 pg/mL [facility] Blood 11/24/2024 12:4 8 PM FISHING LINE WINDING MACHINE OPERATOR 11/24/2024 12:48 PM FISHING LINE WINDING MACHINE OPERATOR Narrative [facility] - 11/30/2024 5:25 PM FISHING LINE WINDING MACHINE OPERATOR FASTING:YES FASTING: YES us Tina Sterling MD LAB BLOOD ORDERABLES Final Resul t Performing Organization Address City/[facility]/ZIP Co de Phone Number [facility] [address] [facility] [place] [address] * TSH (11/24/2024 12:48 PM FISHING LINE WINDING MACHINE OPERATOR) Pathologist [facility] TSH 1.17 mIU/L [facility] Comment: Reference Range > or = 20 Years 0.40-4.50 Ranges First trimester 0.26-2.66 Second trimester 0.55-2.73 Third trimester 0.43-2.91 Blood 11/24/2024 12:4 8 PM FISHING LINE WINDING MACHINE OPERATOR 11/24/2024 12:48 PM FISHING LINE WINDING MACHINE OPERATOR Narrative [facility] - 11/30/2024 5:25 PM FISHING LINE WINDING MACHINE OPERATOR FASTING:YES FASTING: YES us Tina Sterling MD LAB BLOOD ORDERABLES Final Resul t Performing Organization Address [facility] de Phone Number [facility] [address] [place] [address] * T4, free (11/24/2024 12:48 PM FISHING LINE WINDING MACHINE OPERATOR) [facility] Free T4 1.1 0.8 - 1.8 ng/dL [facility] Blood 11/24/2024 12:4 8 PM FISHING LINE WINDING MACHINE OPERATOR 11/24/2024 12:48 PM FISHING LINE WINDING MACHINE OPERATOR Narrative [facility] - 11/30/2024 5:25 PM FISHING LINE WINDING MACHINE OPERATOR FASTING:YES FASTING: YES Result Leonid Sterling MD LAB BLOOD ORDERABLES Final Resul t Performing Organization Address [facility] de Phone Number [facility] [address] [place] [address] * (ABNORMAL) Hemoglobin A1c (11/24/2024 12:48 PM FISHING LINE WINDING MACHINE OPERATOR) [facility] Hgb A1C 5.8(H) <5.7 % of total Hgb [facility] Comment: For someone without known diabetes, a hemoglobin A1c value between 5.7% and 6.4% is consistent with prediabetes and should be confirmed with a follow-up test. For someone with known diabetes, a value <7% indicates that their diabetes is well controlled. A1c targets should be individualized based on duration of diabetes, age, comorbid conditions, and other considerations. This assay result is consistent with an increased risk of diabetes. Currently, no consensus exists regarding use of hemoglobin A1c for diagnosis of diabetes for children. Blood 11/24/2024 12:4 8 PM FISHING LINE WINDING MACHINE OPERATOR 11/24/2024 12:48 PM FISHING LINE WINDING MACHINE OPERATOR Narrative [facility] - 11/30/2024 5:25 PM FISHING LINE WINDING MACHINE OPERATOR FASTING:YES FASTING: YES us Tina Sterling MD LAB BLOOD ORDERABLES Final Resul t Performing Organization Address City/[facility]/ZIP Co de Phone Number [facility] [address] [place] [address] * Cortisol (11/24/2024 12:48 PM FISHING LINE WINDING MACHINE OPERATOR) Pathologist [facility] Cortisol 4.2 mcg/dL [facility] Comment: Reference Range: For 8 a.m.(7-9 a.m.) Specimen: 4.0-22.0 Reference Range: For 4 p.m.(3-5 p.m.) Specimen: 3.0-17.0 * Please interpret above results accordingly * Blood 11/24/2024 12:4 8 PM FISHING LINE WINDING MACHINE OPERATOR 11/24/2024 12:48 PM FISHING LINE WINDING MACHINE OPERATOR Narrative [facility] - 11/30/2024 5:25 PM FISHING LINE WINDING MACHINE OPERATOR FASTING:YES FASTING: YES Tina Sterling MD LAB BLOOD ORDERABLES Final Resul t Performing Organization Address [facility] Co de Phone Number [facility] [address] [place] [address] * Lipid panel (11/24/2024 12:48 PM FISHING LINE WINDING MACHINE OPERATOR) Pathologist [facility] Cholesterol 181 <200 mg/dL [facility] HDL 59 > OR = 50 mg/dL [facility] [facility] Triglycerides 147 <150 mg/dL [facility] LDL 98 mg/dL (calc) [facility] Comment: Reference range: <100 Desirable range <100 mg/dL for primary prevention; <70 mg/dL for patients with CHD or diabetic patients with > or = 2 CHD risk factors. LDL-C is now calculated using the Maxim-Bertrand calculation, which is a validated novel method providing better accuracy than the Friedewald equation in the estimation of LDL-C. Maxim SS et al. DOM. 2013;310(19): 5693-4292 (http://education.[employer]/faq/RRY669) Chol/HDL ratio 3.1 <5.0 (calc) [facility] Non-HDL, (LDL+VLDL) 122 <130 mg/dL (calc) [facility] [facility] Comment: For patients with diabetes plus 1 major ASCVD risk factor, treating to a non-HDL-C goal of <100 mg/dL (LDL-C of <70 mg/dL) is considered a therapeutic option. Blood 11/24/2024 12:4 8 PM FISHING LINE WINDING MACHINE OPERATOR 11/24/2024 12:48 PM FISHING LINE WINDING MACHINE OPERATOR Narrative [facility] - 11/30/2024 5:25 PM FISHING LINE WINDING MACHINE OPERATOR FASTING:YES FASTING: YES us Tina Sterling MD LAB BLOOD ORDERABLES Final Resul t [facility] [address] [place] [address] * Pap with reflex to High Risk HPV (08/15/2022 11:14 AM FISHING LINE WINDING MACHINE OPERATOR) Thin prep (Pap test) 08/15/2022 11:14 AM FISHING LINE WINDING MACHINE OPERATOR 08/20/2022 10:33 AM FISHING LINE WINDING MACHINE OPERATOR Narrative PATHOLOGY [facility] - 08/26/2022 6:39 AM FISHING LINE WINDING MACHINE OPERATOR EPIC results best viewed via link to PDF [address] [address] Tele: Flaca Zeng MD - Radiology Transporter CYTOLOGY REPORT Note to Patients: This report may contain a detailed description of human tissue sent by a health care provider to the laboratory for pathologic evaluation. The content of this report is essential for diagnosis and may provide important critical findings. This information may be unfamiliar to patients to review without a medical professional present. It is advised that the patient review this report in the presence of a health care provider who can answer questions and explain the details. Patient Name: YING CHARLES Address: [address] [place] [address] Gender: F : 1995 (Age: 27) Service: Location: [facility] #: [id number] Patient [place] [facility] Taken: 08/15/2022 Reported: 08/26/2022 Physician(s): Shell Sloan M.D. FINAL DIAGNOSIS: Specimen Type: - ThinPrep Pap w/ reflex HPV Statement of Specimen Adequacy: Source: Cervical/Endocervical - Satisfactory for interpretation - Endocervical /Transformation Zone component present - Case screened using computer assisted imaging technology and manually re- screened by a competitive intelligence analyst. General Categorization: - Negative for intraepithelial lesion or malignancy jxm/08/26/2022 06:39SAMY Apodaca(ASCP), [facility] SAMY Morrison (ASCP)Report Reviewed and Electronically Signed By SAMY Morrison (ASCP)Clerical Data Follow A; G0145 CLINICAL DIAGNOSIS AND HISTORY Last Menstrual Period: 08/10/22 Contraceptive History: IUD This specimen has been rescreened in accordance with the [facility] Laboratory Quality Management Program. REPORT IMAGES AND/OR SCANNED DOCUMENTS ONLY VIEWABLE IN PDF FORMAT The Pap test is a screening test used to aid in the detection of cervical cancer and its precursors. It should not be the sole means by which malignant and premalignant lesions are diagnosed. Both false negative and false positive results may occur. It also has poor sensitivity for the detection of endometrial lesions and should not be used to evaluate suspected endometrial abnormalities. For these reasons it is most important to obtain Pap tests at regular intervals, as recommended by your physician or nurse practitioner. us Shell Sloan MD LAB CYTOLOGY ORDERABLES Final Result PATHOLOGY [facility] Laboratory Receiving [address] [place], [place] [id number] from Last 3 Months or Most Recently Relevant to Health Maintenance Insurance [facility] CHOICE PLUS [facility] CHOICE PLUS [employer] MEDICARE [facility] MEDIC[facility] Advance Directives For more information, please contact: [phone] * Full Code (Latest Code Status on File) Date Activated Date Inactivated Comments 04/28/2018 4:53 AM 04/30/2018 9:19 PM * Full Code Date Activated Date Inactivated Comments 04/08/2018 7:17 PM * Full Code Date Activated Date Inactivated Comments 03/29/2018 12:59 AM 03/29/2018 6:41 PM Care Teams Gang Drill Press Operator Relationship Specialty Start Date End Date Melissa Ortiz MD [address] [facility] [address] [place] [address] PCP - Medical Home Physical Medicine and Rehabilitation 04/07/18 Roxy Renteria MD [address] [facility] [address] [place] [address] PCP - General Sleep Medicine 05/11/23 Shelbi Laboy MD [address] [facility] [address] [place] [address] 04/27/18 Miky Long, PhD [address] [facility] [address] [place] [address] Referring Physician Speech Therapy 03/21/18 Mya Castillo, RIA [address] [facility] [address] [place] [address] Speech Language Pathologist Speech Therapy 05/08/18 Shell Sloan MD [address] [place] [address] Consulting Physician Obstetrics and Gynecology 08/10/22
--- OUTSIDE RECORDS SUMMARY | 2025-02-10 15:45 | XMS_ITS | Referral Summary ---
Author Organization [facility] Address [address] [place] [address] Care Team Providers Care Stem Roller Operator Name Role Phone Shelbi Laboy MD Unavailable [phone] Melissa Ortiz MD Unavailable Miky Long PhD Unavailable [phone] Mya Castillo Unavailable [phone] Shell Sloan MD Unavailable Roxy Renteria MD Primary Care Provider [phone] Encounters Date Type Department Care Team Description 01/19/[address] [facility] [address] [facility] [address] [place] [address] Susan Lundberg NP 01/15/2025 Telephone [facility] Sleep Medicine [address] [facility] [address] [place] [address] Susan Lundberg, J CARLOS 01/14/2025 Nurse Triage [address], [place] [address] Katy Horan RN 01/07/2025 9:00 AM CDT Office Visit [address] [place] [phone] Chapo Nance NP Recent weight gain (Primary Dx) 12/16/[address] [facility] [address] [place] [address] [address] [place] [address] Gilberto Eubanks DO Hypersomnolence (Primary Dx); Traumatic brain injury with loss of consciousness, sequela 12/16/2024 3:30 PM CDT Office Visit [facility] Sleep Medicine [address] [place] [address] [address] [place] [address] Susan Lundberg NP Idiopathic hypersomnia (Primary Dx); Other fatigue; History of traumatic brain injury; Mixed anxiety and depressive disorder; Class 2 severe obesity due to excess calories with serious comorbidity and body mass index (BMI) of 36.0 to 36.9 in adult (HCC) 12/11/2024 Telephone [facility] Endocrinology Metabolism and Lipid [address] [facility] Advanced Medicine 5th Floor [address] [place] [phone] Amairani Edmondson RMA 12/11/[address] [place] [address] Roxy Renteria MD Medical Question/Miscellaneous 11/20/2024 Telephone [facility] Endocrinology Metabolism and Lipid [address] [facility] Advanced Medicine 5th Floor [address] [place] [phone] Porfirio oTdd, WILMA Prior Auth (somatropin (Genotropin MiniQuick) 0.4 mg/0.25 mL syringe) from Last 3 Months Allergies Active Allergy Reactions Criticality Noted Date Comments Latex Rash High 03/22/2017 Neomycin Itching,Rash Medium 03/22/2017 Vxmsvkfk-Xpbpbfuqat-Hmbcr yxin Rash Medium 03/25/2018 Nickel Rash High [...] pain Can take with ibuprofen 30 tablet 019 Active EPINEPHrine 0.3 mg/0.3 mL auto-injection syringeIndication s:Anaphylaxis Inject 0.3 mL (0.3 mg total) into the muscle as instructed as needed for anaphylaxis 2 each 2 021 Active nystatin ointment Apply topically 2 (two) times a day 30 g 11 Active Additional Information Patient taking differently:topical 2 times daily,As needed., Reported on 01/07/2025 pen needle, diabetic 32 gauge x 3/16 needle daily 019 Active comprs.stocking,t high,long,med miscIndications:P OTS (postural orthostatic [...] as needed for anxiety 30 tablet [address] (CYMBALTA) 20 mg capsule [...] 08/15/2022 Assessment & Plan (08/15/2022 11:14 AM STOCK PITCHER): Pap smear recommend self-breast exam. She declines [...] (08/10/2021 1:29 PM CDT): Will refer to advertising sales manager Seizure disorder 07/27/2021 Overview (08/10/2021): Father says he is not sure if the seizure was before or after her fall. [facility] Neuro Consult arranged in September. Assessment & Plan (05/14/2024 1:41 PM CDT): Chronic, stable, well controlled. Continue zonisamide and follow closely with Neurology. Assessment & Plan (08/10/2021 1:43 PM CDT): Continue Keppra and f/u with neuro Assessment & Plan (07/27/2021 2:37 PM CDT): Now on Keppra Follow up with Dr. Summers [address] [facility] [address] [place] [address] [phone] Vestibular migraine 06/09/2021 POTS (postural orthostatic tachycardia [...] dose Assessment & Plan (08/30/2021 10:19 AM STOCK PITCHER): Stable and feeling better on current midodrine [...] therapy. 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 Continue aspirin. Assessment & Plan (05/11/2023 9:18 AM CDT): Stable. Continue aspirin. 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 Nikolas John 07/28: buspar added recently but has not [...] 10/23/2021 Assessment & Plan (08/27/2021 4:51 PM STOCK PITCHER): Possible seizure vs syncope 07/23/21 Continue LEV 500/500 Will schedule EEG ordered from ED F/u with Dr. Douglas with Epilepsy as scheduled Maxillary fracture 04/28/2018 Lip laceration 04/28/2018 06/11/2018 Loss of teeth due to an acci dent, class II edentulism 04/28/2018 01/01/2022 Candidiasis of vagina 08/24/20162021 History of candidiasis 08/15/201603/03 Hay fever 07/01/2015 01/01/2022 Immunizations Immunization Administration Dates Next Due DTaP [...] Conjugate Pcv20 07/27/2023 Tdap 10/16/2023,04/14/2011 Varicella 09/20/2007,09/20/1998 Social History Tobacco Use Types Packs/Day Years [...] on file Legal Sex Female 10:11 PM STOCK PITCHER Gender Identity Female 08/31/2019 10:05 PM STOCK PITCHER Sexual Orientation Don't know 08/31/2019 10 :05 PM STOCK PITCHER Occupation Industry Job Start Date Job End [...] 01/07/2025 9:02 AM CDT Plan of Treatment Not on file Procedures Procedure Name Priority Date/Time Associated Diagnosis Comments CORTISOL, URINE, 24 HOUR Routine 12/19/2024 2:43 PM CDT Traumatic brain injury with loss of consciousness, sequela BMI 35.0-35.9,adult CORTISOL, URINE, 24 HOUR Routine 12/09/2024 3:23 PM STOCK PITCHER CORTISOL,SALIVA Routine 12/09/2024 3:23 PM STOCK PITCHER CORTISOL Routine 11/26/2024 9:27 AM STOCK PITCHER Traumatic brain injury with loss of consciousness, sequela BMI 35.0-35.9,adult DEXAMETHASONE Routine 11/26/2024 9:27 AM STOCK PITCHER Traumatic brain injury with loss of consciousness, sequela BMI 35.0-35.9,adult INSULIN-LIKE GROWTH FACTOR Routine 11/24/2024 12:48 PM STOCK PITCHER GROWTH HORMONE Routine 11/24/2024 12:48 PM STOCK PITCHER CORTISOL Routine 11/24/2024 12:48 PM STOCK PITCHER 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, sequela ACTH Routine 11/24/2024 12:48 PM STOCK PITCHER 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, sequela T3, FREE Routine 11/24/2024 12:48 PM STOCK PITCHER Growth hormone deficiency T4, FREE Routine 11/24/2024 12:48 PM STOCK PITCHER Growth hormone deficiency TSH Routine 11/24/2024 12:48 PM STOCK PITCHER Growth hormone deficiency LIPID PANEL Routine 11/24/2024 12:48 PM STOCK PITCHER Prediabetes HEMOGLOBIN A1C Routine 11/24/2024 12:48 PM STOCK PITCHER Prediabetes PAP WITH REFLEX TO HIGH RISK HPV Routine 08/15/2022 11:14 AM STOCK PITCHER Well woman exam with routine gynecological exam Special screening examination for human papillomavirus (HPV) Screening for malignant neoplasm of the cervix from Last 3 Months or Most Recently Relevant to Health Maintenance Results * Cortisol Free urine 24 hour (12/19/2024 2:43 PM CDT) Volume, 24 hr, ur 1,400 mL [facility] [employer], Cortisol, free, ur 21.5 4.0 - 50.0 mcg/24 h [facility] [employer], Comment: This test was developed and its analytical performance characteristics have been determined by [facility]. It has not been cleared or approved by the FDA. This assay has been validated pursuant to the CLIA regulations and is used for clinical purposes. Creatinine, ur 1.35 0.50 - 2.15 g/24 h [facility] [employer], Urine 12/19/2024 2:43 PM CDT 12/19/2024 2:44 PM CDT Narrative [facility] - 12/24/2024 10:12 PM CDT COLLECTION KIT GIVEN TO PATIENT. PATIENT ADVISED TO RETURN. URINE VOLUME: 1400/24 us Tina Sterling MD LAB URINE ORDERABLES Final Resul t [facility], [address] [place] [address] * Cortisol, saliva (12/09/2024 3:23 PM STOCK PITCHER) Cortisol, saliva <0.03 mcg/dL [facility] [employer], Comment: 8-10 AM: 0.04-0.56 mcg/dL noon-2 PM: < OR = 0.21 mcg/dL 4-6 PM: < OR = 0.15 mcg/dL 10 PM-1 AM: < OR = 0.09 mcg/dL This test was developed and its analytical performance characteristics have been determined by [facility]. It has not been cleared or approved by FDA. This assay has been validated pursuant to the CLIA regulations and is used for clinical purposes. 12/09/2024 3:23 PM STOCK PITCHER 12/10/2024 5:15 AM STOCK PITCHER Narrative [facility] - 12/16/2024 2:08 AM CDT URINE VOLUME: 900/24 Tina Sterling MD LAB BODY FLUIDS AND STOOLS ORDER KENNY Final Result Performing Organization Address [facility] de Phone Number [facility], [address] [place] [address] * Cortisol Free urine 24 hour (12/09/2024 3:23 PM STOCK PITCHER) Volume, 24 hr, ur 900 mL [facility], Cortisol, free, ur 13.8 4.0 - 50.0 mcg/24 h [facility], Comment: This test was developed and its analytical performance characteristics have been determined by [facility]. It has not been cleared or approved by FDA. This assay has been validated pursuant to the CLIA regulations and is used for clinical purposes. Creatinine, ur 1.28 0.50 - 2.15 g/24 h [facility], 12/09/2024 3:23 PM STOCK PITCHER 12/10/2024 5:15 AM STOCK PITCHER Narrative [facility] - 12/16/2024 2:08 AM CDT URINE VOLUME: 900/24 Tina Sterling MD LAB URINE ORDERABLES Final Resul t Performing Organization Address [facility] Co de Phone Number [facility] [facility], [address] [place] [address] * Dexamethasone (11/26/2024 9:27 AM STOCK PITCHER) Pathologist [facility] DEXAMETHASONE 203 ng/dL [facility] [facility], Comment: Reference Ranges for Dexamethasone: Baseline: Less than 20 ng/dL 1 mg dexamethasone overnight: 180-550 ng/dL (8:00-10:00 AM) This test was developed and its analytical performance characteristics have been determined by [facility]. It has not been cleared or approved by FDA. This assay has been validated pursuant to the CLIA regulations and is used for clinical purposes. Blood 11/26/2024 9:27 AM STOCK PITCHER 11/26/2024 9:28 AM STOCK PITCHER Tina Sterling MD LAB BLOOD ORDERABLES Final Resul t Performing Organization Address [facility] de Phone Number [facility], [address] [place] [address] * (ABNORMAL) Cortisol (11/26/2024 9:27 AM STOCK PITCHER) [facility] Cortisol 0.5(L) mcg/dL [facility] Comment: Reference Range: For 8 a.m.(7-9 a.m.) Specimen: 4.0-22.0 Reference Range: For 4 p.m.(3-5 p.m.) Specimen: 3.0-17.0 * Please interpret above results accordingly * Blood 11/26/2024 9:27 AM STOCK PITCHER 11/26/2024 9:28 AM STOCK PITCHER Tina Sterling MD LAB BLOOD ORDERABLES Final Resul t Performing Organization Address City/[facility] Co de Phone Number [facility] [address] [place] [address] * Insulin-like growth factor (IGF-1) (11/24/2024 12:48 PM STOCK PITCHER) [facility] IGF 1, LC/MS 159 63 - 373 ng/mL [facility] [facility], Z SCORE (FEMALE) -0.1 -2.0 - 2.0 SD [facility], Comment: This test was developed and its analytical performance characteristics have been determined by [facility]. It has not been cleared or approved by FDA. This assay has been validated pursuant to the CLIA regulations and is used for clinical purposes. 11/24/2024 12:4 8 PM STOCK PITCHER 11/24/2024 12:48 PM STOCK PITCHER Narrative [facility] - 11/30/2024 5:25 PM STOCK PITCHER FASTING:YES FASTING: YES us Tina Sterling MD LAB BLOOD ORDERABLES Final Resul t [facility], [address] [place] [address] * Growth hormone (11/24/2024 12:48 PM STOCK PITCHER) Growth hormone 0.1 < OR = 7.1 ng/mL [facility] Comment: Because of a pulsatile [...] = 10.0 ng/mL 11/24/2024 12:4 8 PM STOCK PITCHER 11/24/2024 12:48 PM STOCK PITCHER Narrative [facility] - 11/30/2024 5:25 PM STOCK PITCHER FASTING:YES FASTING: YES Tina Sterling MD LAB BLOOD ORDERABLES Final Resul t [facility] [address] [place] [address] * ACTH (11/24/2024 12:48 PM STOCK PITCHER) Pathologist [facility] ACTH, PLASMA 14 6 - 50 pg/mL [facility] Comment: Reference range applies only to specimens collected between 7am-10am. Blood 11/24/2024 12:4 8 PM STOCK PITCHER 11/24/2024 12:48 PM STOCK PITCHER Narrative [facility] - 11/30/2024 5:25 PM STOCK PITCHER FASTING:YES FASTING: YES Tina Sterling MD LAB BLOOD ORDERABLES Final Resul t Performing Organization Address City/[facility]/ZIP Co de Phone Number [facility] [address] [place] [address] * T3, free (11/24/2024 12:48 PM STOCK PITCHER) [facility] Free T3 3.1 2.3 - 4.2 pg/mL [facility] Blood 11/24/2024 12:4 8 PM STOCK PITCHER 11/24/2024 12:48 PM STOCK PITCHER Narrative [facility] - 11/30/2024 5:25 PM STOCK PITCHER FASTING:YES FASTING: YES Tina Sterling MD LAB BLOOD ORDERABLES Final Resul t [facility] [address] [facility] [place] [address] * TSH (11/24/2024 12:48 PM STOCK PITCHER) [facility] TSH 1.17 mIU/L [facility] Comment: Reference Range > or = 20 Years 0.40-4.50 Ranges First trimester 0.26-2.66 Second trimester 0.55-2.73 Third trimester 0.43-2.91 Blood 11/24/2024 12:4 8 PM STOCK PITCHER 11/24/2024 12:48 PM STOCK PITCHER Narrative [facility] - 11/30/2024 5:25 PM STOCK PITCHER FASTING:YES FASTING: YES Tina Sterling MD LAB BLOOD ORDERABLES Final Resul t Performing Organization Address [facility] de Phone Number [facility] [address] [place] [address] * T4, free (11/24/2024 12:48 PM STOCK PITCHER) Free T4 1.1 0.8 - 1.8 ng/dL [facility] Blood 11/24/2024 12:4 8 PM STOCK PITCHER 11/24/2024 12:48 PM STOCK PITCHER Narrative [facility] - 11/30/2024 5:25 PM STOCK PITCHER FASTING:YES FASTING: YES us Tina Sterling MD LAB BLOOD ORDERABLES Final Resul t Performing Organization Address [facility] de Phone Number [facility] [address] [place] [address] * (ABNORMAL) Hemoglobin A1c (11/24/2024 12:48 PM STOCK PITCHER) Hgb A1C 5.8(H) <5.7 % of total Hgb [facility] Comment: For someone without known diabetes, [...] for children. Blood 11/24/2024 12:4 8 PM STOCK PITCHER 11/24/2024 12:48 PM STOCK PITCHER Narrative [facility] - 11/30/2024 5:25 PM STOCK PITCHER FASTING:YES FASTING: YES Tina Sterling MD LAB BLOOD ORDERABLES Final Resul t Performing Organization Address City/[facility] Co de Phone Number [facility] [address] [place] [address] * Cortisol (11/24/2024 12:48 PM STOCK PITCHER) Cortisol 4.2 mcg/dL [facility] Comment: Reference Range: For 8 a.m.(7-9 a.m.) Specimen: 4.0-22.0 Reference Range: For 4 p.m.(3-5 p.m.) Specimen: 3.0-17.0 * Please interpret above results accordingly * Blood 11/24/2024 12:4 8 PM STOCK PITCHER 11/24/2024 12:48 PM STOCK PITCHER Narrative [facility] - 11/30/2024 5:25 PM STOCK PITCHER FASTING:YES FASTING: YES Tina Sterling MD LAB BLOOD ORDERABLES Final Resul t Performing Organization Address [facility] Co de Phone Number [facility] [address] [place] [address] * Lipid panel (11/24/2024 12:48 PM STOCK PITCHER) Cholesterol 181 <200 mg/dL [facility] [...] factors. LDL-C is now calculated using the Adam calculation, which is a validated novel method providing better accuracy than the Friedewald equation in the estimation of LDL-C. Maxim GAY et al. DOM. 2013;310(19): 0746-1233 (http://education.[employer].com/faq/TAS814) Chol/HDL ratio 3.1 <5.0 (calc) [facility] Non-HDL, (LDL+VLDL) 122 <130 mg/dL (calc) [facility] Comment: For patients with diabetes plus 1 major ASCVD risk factor, treating to a non-HDL-C goal of <100 mg/dL (LDL-C of <70 mg/dL) is considered a therapeutic option. Blood 11/24/2024 12:4 8 PM STOCK PITCHER 11/24/2024 12:48 PM STOCK PITCHER Narrative [facility] - 11/30/2024 5:25 PM STOCK PITCHER FASTING:YES FASTING: YES us Tina Sterling MD LAB BLOOD ORDERABLES Final Resul t [facility] [address] [place] [address] * Pap with reflex to High Risk HPV (08/15/2022 11:14 AM STOCK PITCHER) Thin prep (Pap test) 08/15/2022 11:14 AM STOCK PITCHER 08/20/2022 10:33 AM STOCK PITCHER Narrative PATHOLOGY [facility] - 08/26/2022 6:39 AM STOCK PITCHER EPIC results best viewed via link to PDF [address] [address] Tele: Flaca Zeng MD - [facility] CYTOLOGY REPORT Note to Patients: This report [...] details. Patient Name: YING CHARLES Address: [address] [place] [address] Gender: F : 1995 (Age: 27) Service: Location: [facility] #: [id number] Patient Type: [facility] SPECIMEN Taken: 08/15/2022 Reported: 08/26/2022 Physician(s): Shell Sloan M.D. FINAL DIAGNOSIS: Specimen Type: - ThinPrep Pap w/ reflex HPV Statement of Specimen Adequacy: Source: Cervical/Endocervical - Satisfactory for interpretation - Endocervical /Transformation Zone component present - Case screened using computer assisted imaging technology and manually re- screened by a production bow maker. General Categorization: - Negative for intraepithelial lesion or malignancy jxm/08/26/2022 06:39SAMY Apodaca(ASCP), [facility] SAM[facility] Morrison (ASCP)Report Reviewed and Electronically Signed By SAMY Morrison (ASCP)Clerical Data Follow A; G0145 CLINICAL DIAGNOSIS AND HISTORY Last Menstrual Period: 08/10/22 Contraceptive History: IUD This specimen has been rescreened in accordance with the [facility] Laboratory Quality Management Program. REPORT IMAGES [...] MD LAB CYTOLOGY ORDERABLES Final Result PATHOLOGY [facility] Laboratory Receiving [address] [place] [address] from Last 3 Months or Most Recently Relevant to Health Maintenance Insurance [facility] CHOICE PLUS [facility] CHOICE PLUS IDKS MEDICARE [employer] [facility] MEDICARE Advance Directives For more information, please contact: [phone] * Full Code (Latest Code Status on File) Date Activated Date Inactivated Comments 04/28/2018 4:53 AM 04/30/2018 9:19 PM * Full Code Date Activated Date Inactivated Comments 04/08/2018 7:17 PM * Full Code Date Activated Date Inactivated Comments 03/29/2018 12:59 AM 03/29/2018 6:41 PM Care Teams Stem Roller Operator Relationship Specialty Start Date End Date Melissa Ortiz MD [address] [facility] [address] [place] [address] PCP - Medical Home Physical Medicine and Rehabilitation 04/07/18 Roxy Renteria MD [address] [facility] [address] [place] [address] PCP - General Sleep Medicine 05/11/23 Shelbi Laboy MD [address] [facility] [address] [place] [address] 04/27/18 Miky Long, PhD [address] [facility] [address] [place] [address] Referring Physician Speech Therapy 03/21/18 Mya Castillo, RIA [address] [facility] [address] [place] [address] Speech Language Pathologist Speech Therapy 05/08/18 Shell Sloan MD [address] [facility] [address] [address] Consulting Physician Obstetrics and Gynecology 08/10/22
--- OUTSIDE RECORDS SUMMARY | 2025-02-10 15:46 | XMS_ITS | Encounter Summary ---
Author Organization [facility] Address [address] [place] [address] Phone Care Team Providers Care Wind Projects Supervisor Name Role Phone Shelbi Laboy MD Primary Care Provider + Shelbi Laboy MD Unavailable [phone] Melissa Ortiz MD Unavailable [phone] Miky Long PhD Unavailable [phone] Mya Castillo [facility] Unavailable [phone] Terri Delgadillo MD Primary Care Provider [phone] Shell Sloan MD Unavailable [phone] Roxy Renteria MD Primary Care Provider [phone] Encounter Details Date Type Department Care Team (Latest Contact Info) Description 12/09/2018 Orders Only [facility] Diandra Hutton MD [address] [place], [place] [id number] Social History Tobacco Use Types Packs/Day Years Used Date Smoking Tobacco: Never Smokeless Tobacco: Never Alcohol Use Standard Drinks/Week Comments No 0 (1 standard drink = 0.6 oz pur e alcohol) Comments No Sex and Gender Information Value Date Recorded Sex Assigned at Not on file Legal Sex Female 10:11 PM COUNSELING SERVICES DIRECTOR Gender Identity Female 08/31/2019 10:05 PM COUNSELING SERVICES DIRECTOR Sexual Orientation Don't know 08/31/2019 10 :05 PM COUNSELING SERVICES DIRECTOR documented as of this encounter Plan of Treatment Not on file documented as of this encounter Procedures Procedure Name Priority Date/Time Associated Diagnosis Comments SCAN - LABS 12/09/2018 documented in this encounter Results * SCAN - LABS (12/09/2018) Diandra Hutton MD Final Res ult documented in this encounter Visit Diagnoses Not on filedocumented in this encounter Additional Health Concerns Infection Onset Date Last Indicated Resolved Time MRSA Comment:MRSA pneumonia in 01/201806/11/2019 06/11/2019 021 5:00 AM CDT documented as of this encounter Care Teams Wind Projects Supervisor Relationship Specialty Start Date End Date Shelbi Laboy MD [address] [facility] [address] [place] [address] PCP - General 04/27/18 01/05/21 Melissa Ortiz MD [address] [place] [address] [address] [place] [address] PCP - Medical Home Physical Medicine and Rehabilitation 04/07/18 Terri Delgadillo MD [address] [facility] [address] [place] [address] PCP - General Internal Medicine 01/06/21 05/10/23 Roxy Renteria MD [address] [place] [address] [address] [place] [address] PCP - General Sleep Medicine 05/11/23 Shelbi Laboy MD [facility] [address] [place] [address] 04/27/18 Miky Long, PhD [address] [facility] [address] [place] [address] Referring Physician Speech Therapy 03/21/18 Mya Castillo, RIA [address] [facility] [address] [place] [address] Speech Language Pathologist Speech Therapy 05/08/18 Shell Sloan MD [address] [facility] [address] [place] [address] Consulting Physician Obstetrics and Gynecology 08/10/22 documented as of this encounter
--- OUTSIDE RECORDS SUMMARY | 2025-02-10 15:46 | XMS_ITS | Continuity of Care Document ---
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 [address], [place], [place], [id number]. 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 [address] [facility] [place], [place], [address]. tel:[phone] PREV VISIT EST AGE 18-39 [facility], [address], [place], [address], [place] tel:[phone] [facility] annual exam (chief complaint) Encntr for crocheter exam (general) (routine) w/o abn findingsIncont inence of feces, unspecified fecal incontinence typeScreen for STD (sexually transmitted disease) 9 Luther Goff. [address] [place], [place], [address]. tel:[phone] OFFICE/OUTPA TIENT VISIT EST [facility], [address], [place], [address], [place] tel:[phone] [facility] abdominal pain (chief complaint) Abdominal pain in female 7 Keysha Green. [address], [address]. tel:[phone] OFFICE/OUTPA TIENT VISIT EST [facility], [address], [address], [place] tel:[phone] [facility] IUD insertion (chief complaint) Encounter for preprocedural laboratory examinationIUD check upEncounter for insertion of intrauterine contraceptive device 7 Luther Goff. [address] [place], [place], [address]. tel:[phone] OFFICE/OUTPA TIENT VISIT EST [facility], [address], [place], [address], [place] tel:[phone] [facility] bc options (chief complaint)f requent vaginal infections (chief complaint) Encounter for counseling regarding contraceptionB acterial vaginosis 7 [facility]. [address], [id number]. tel:[phone] PREV VISIT EST AGE 18-39 [facility], [address] [address], [place], [address], [place] tel:[phone] [facility] annual exam (chief complaint) Encntr for crocheter exam (general) (routine) w/o abn findingsScreen for STD (sexually transmitted disease)Encoun ter for counseling regarding contraception 6 [facility]. [address] [place] [address], [id number]. tel:[phone] OFFICE/OUTPA TIENT VISIT EST [facility], [address] [address], [place], [address], [place] tel:[phone] [facility] vaginal discharge/i tching (chief complaint) Candidiasis of female genitaliaEncou nter for counseling regarding contraception 6 [facility]. [address] [place] [address], [place], [address]. 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 [address], [place], [place], [address]. tel:[phone] [facility], [address] [facility] [address], [place], [address], [place] tel:[phone] [facility] ROUTIN CHILD HEALTH EXAM 5 Angel Shaffer. [address] [facility], [place], [place], [address]. tel:[phone] OFFICE/OUTPA TIENT VISIT EST [facility], [address] [facility] [address] [address], [place], [address], [place] tel:[phone] [facility] B/C Check (chief complaint) Contraceptive surveillance 4 Fredy Deshpande. [address], [place], [place], [address]. tel:[phone] OFFICE/OUTPA TIENT VISIT NEW [facility], [address] [facility] [address] [facility] [address], [place], [address], [place] tel:[phone] [facility] Irregular menses (chief complaint)m ood swings/cryi ng spells with menses (chief complaint) OCP, Initial 8 4 Fredy Deshpande. [address], [place], [place], [address]. tel:[phone] Family History Family Member Type Diagnosis Age [...] protein, LNP, preservative free, 30 mcg/0.3mL dose (Narr8) administered Source: Other Provider Payers Payer name Insurance type Covered libertarian ID Mckenzie duvall(s) Blue Access PPO [id number] OT [id number] Social History Type Description Quantity Date Captured [...] ordered Future Order: Lab Order Culture, Urine ([id number]), Sent on: Sent History Of Present Illness [...] with her pediatician, had STD testing with [facility] which was normal too. 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 Patient Care Teams Name Effective Dates (start - stop) Status Members No Information
[2025-02-10 15:47] VITALS: BP 147/99; PULSE 102; RESP 18; TEMP 36.6; O2SAT 99
== END 2025-02-10 15:56 | disposition home or self-care (01) ==
PROVIDERS: Emergency Provider Nurse Practitioner
DX: S60.511A Abrasion of right hand, initial encounter (principal); X58.XXXA Exposure to other specified factors, initial encounter; F12.90 Cannabis use, unspecified, uncomplicated
CPT/HCPCS: 99213; G0463